=== PATIENT | female | born 1990 | race Caucasian/White ===

== ENCOUNTER 2019-11-16 09:54 | Inpatient (IN) | payer OTHER, SELFPAY ==
[2019-11-16] MEDS ORDERED: hydrALAZINE 20 MG/ML VIAL SLOW IVP PRN ×2 (10:07→13:59)
[2019-11-16] MEDS ORDERED: Promethazine HCl 25 MG/ML VIAL IM PRN ×2 (10:07→13:03)
[2019-11-16] MEDS ORDERED: Ondansetron PF 4 MG/2 ML Vial IVP PRN ×3 (10:07→13:59)
[2019-11-16] MEDS ORDERED: Butorphanol Tartrate 1 MG/ML VIAL SLOW IVP PRN (10:07)
[2019-11-16] MEDS ORDERED: Lactated Ringer's 1,000 ML IV SCH (10:15)
[2019-11-16 10:45] LABS: Hemoglobin 13.2 g/dL (12.0-16.0); Mean Corpuscular HGB CONC 34.8 g/dL (32.0-36.0); Mean Corpuscular Hemoglobin 32.5 pg (27.0-31.0); Mean Corpuscular Volume 93.1 fL (78.0-98.0); Mean Platelet Volume 8.4 fL (7.4-10.4); Platelet Count 226 thou/uL (130-400); RBC Distribution Width 10.9 % (11.5-14.5); Red Blood Cell (RBC) Count 4.08 mill/uL (4.20-5.40); White Blood Cell (WBC) Count 16.6 thou/uL (4.8-10.8)
[2019-11-16 11:15] VITALS: BMI 25.8
[2019-11-16 11:29] LABS: HBSAg Index 0.15 S/CO (0-0.99); Hep B Surf Ag Non-Reactive S/CO (NonReactive)
[2019-11-16 11:30] LABS: Syphilis Antibody Nonreactive (Nonreactive); Syphilis Antibody Index 0.04 S/CO (<1.00 Non-Reactive)
[2019-11-16] MEDS ORDERED: Bicitra 30 ML UDCUP PO SCH (11:30)
[2019-11-16] MEDS ORDERED: CEFAZOLIN 2 GM in Premix Bag 1 BAG IVPB SCH (11:30)
[2019-11-16] MEDS ORDERED: Ondansetron PF 4 MG/2 ML Vial ONE (11:57)
[2019-11-16] MEDS ORDERED: Famotidine/PF 20 mg/2ml Vial ONE (12:08)
[2019-11-16] MEDS ORDERED: MORPHINE 5 MG/10 ML PF VIAL ONE (12:15)
[2019-11-16] MEDS ORDERED: Oxytocin 10 UNITS/ML VIAL ONE ×2 (12:16→12:18)
[2019-11-16] MEDS ORDERED: EPHEDRINE 25 MG/5 ML SYRINGE ONE (12:16)
[2019-11-16] MEDS ORDERED: PHENYLEPHRINE-NS 100 MCG/ML 10 ML SYRINGE ONE (12:16)
[2019-11-16] MEDS ORDERED: Meperidine HCl/PF 25 MG/ML VIAL SLOW IVP PRN (13:03)
[2019-11-16] MEDS ORDERED: Ondansetron HCl/PF 4 MG/2 ML Vial IVP PRN (13:03)
[2019-11-16] MEDS ORDERED: Naloxone HCl 0.4 mg/ml Vial IV PRN (13:03)
[2019-11-16] MEDS ORDERED: Promethazine HCl 25 MG SUPP PR PRN (13:03)
[2019-11-16] MEDS ORDERED: L&D-Morphine 4 MG/ML VIAL SLOW IVP PRN (13:03)
[2019-11-16] MEDS ORDERED: diphenhydrAMINE 50 MG/ML VIAL IVP PRN (13:03)
[2019-11-16] MEDS ORDERED: HYDROmorphone 2 MG/ML VIAL SLOW IVP PRN (13:03)
[2019-11-16] MEDS ORDERED: Naloxone HCl 0.4 mg/ml Vial IVP PRN ×2 (13:03)
[2019-11-16] MEDS ORDERED: Communication Order-Pharmacy FS SCH (13:15)
[2019-11-16] MEDS ORDERED: Simethicone Chewable 80 MG TAB PO PRN (13:59)
[2019-11-16] MEDS ORDERED: Acetaminophen 325 MG TAB PO PRN (13:59)
[2019-11-16] MEDS ORDERED: Misoprostol 200 MCG TAB PR PRN (13:59)
[2019-11-16] MEDS ORDERED: Lanolin Ointment 7 GM TUBE TOP PRN (13:59)
[2019-11-16] MEDS ORDERED: Adacel (T-DAP) 0.5 ML SYRINGE IM ONE (13:59)
[2019-11-16] MEDS ORDERED: Bisacodyl 10 MG SUPP PR PRN (13:59)
[2019-11-16] MEDS ORDERED: Zolpidem Tartrate 5 MG TAB PO PRN (13:59)
[2019-11-16] MEDS ORDERED: NS / Oxytocin 40 units/1000ml 1,000 ML IV SCH (14:00)
[2019-11-16] MEDS: Lactated Ringer's 1,000 ML IV SCH ×2 (16:06→21:32)
[2019-11-16] MEDS: Ferrous Sulfate 325 MG TAB PO SCH (18:10)
[2019-11-16] MEDS: Ketorolac Tromethamine 30 MG/ML VIAL IVP PRN (21:25)
[2019-11-16] MEDS: Docusate Calcium (SURFAK) 240 MG CAP PO SCH (21:31)
[2019-11-16] MEDS: diphenhydrAMINE 25 MG CAP PO PRN (21:31)
[2019-11-17] MEDS ORDERED: Meperidine HCl/PF 25 MG/ML VIAL IM PRN (01:15)
[2019-11-17] MEDS ORDERED: HYDROcodone/Acetaminophen 5/325 mg Tablet PO PRN (01:15)
[2019-11-17] MEDS ORDERED: Butorphanol Tartrate 1 MG/ML VIAL SLOW IVP PRN (01:15)
[2019-11-17] MEDS: Ketorolac Tromethamine 30 MG/ML VIAL IVP PRN (04:41)
[2019-11-17] MEDS: diphenhydrAMINE 25 MG CAP PO PRN (04:46)
[2019-11-17 06:14] LABS: Mean Corpuscular HGB CONC 34.1 g/dL (32.0-36.0); Mean Corpuscular Hemoglobin 32.4 pg (27.0-31.0); Mean Corpuscular Volume 95.1 fL (78.0-98.0); Mean Platelet Volume 8.6 fL (7.4-10.4); Platelet Count 203 thou/uL (130-400); RBC Distribution Width 10.7 % (11.5-14.5); Red Blood Cell (RBC) Count 3.08 mill/uL (4.20-5.40); White Blood Cell (WBC) Count 26.2 thou/uL (4.8-10.8)
[2019-11-17] MEDS: Prenatal Vitamin 1 TAB PO SCH (09:05)
[2019-11-17] MEDS: Docusate Calcium (SURFAK) 240 MG CAP PO SCH ×2 (09:05→22:18)
[2019-11-17] MEDS: Ferrous Sulfate 325 MG TAB PO SCH ×2 (09:06→18:40)
[2019-11-17] MEDS: HYDROcodone/Acetaminophen 5/325 mg Tablet PO PRN (09:07)
[2019-11-17] MEDS: Lactated Ringer's 1,000 ML IV SCH ×2 (14:25→22:00)
[2019-11-17] MEDS: Ibuprofen 800 MG TAB PO SCH ×3 (14:27→22:18)
--- NOTE | 2019-11-17 20:06 | OP ---
DATE OF PROCEDURE: 11/16/2019 ATTENDING STAFF PHYSICIAN: Rashad Gill MD RESIDENT SURGEON: Lamont Tsai MD PREOPERATIVE DIAGNOSES: 1. Term intrauterine at 37 and 6/7th's weeks. 2. Footling breech presentation. 3. Active labor. POSTOPERATIVE DIAGNOSES: 1. Term intrauterine at 37 and 6/7th's weeks. 2. Footling breech presentation. 3. Active labor. PROCEDURE PERFORMED: Emergent primary low transverse section. ANESTHESIA: Spinal catheterization. FINDINGS: 1. Active labor with footling breech presentation. 2. Cervix dilated to 6 cm, complete effacement, and -1 station. 3. Vigorous male , 7 pounds 5 ounces. Apgars were 8 and 9. 4. Normal uterus, tubes, and ovaries. COMPLICATIONS: None. SPECIMENS REMOVED: Cord blood. BLOOD LOSS: Approximately mL (QBL was 398 mL). HISTORY AND INDICATIONS: Mrs. Natasha Hogan is a very pleasant 29-year-old white female, 2, para 1-0-0-1, who is following my clinic for obstetric care. Natasha's has been complicated by first trimester vaginal bleeding with subchorionic bleed and breech presentation in the third trimester. Natasha called the office this morning, 11/16/2019, and noted that she was feeling more pelvic pressure and had a very small amount of bloody show. She presented to the office as scheduled and cervical examination revealed her to be 5+ cm dilated, completely effaced, and -1 station. There was bloody show noted. The patient was feeling significant amount of pressure and having regular contractions. She was sent to [facility] and admitted through the emergency room for emergent delivery. The patient and her were thoroughly counseled and consented, and disclosures were signed and placed in the chart. Questions were answered to the patient's and family's satisfaction. DESCRIPTION OF PROCEDURE: After thorough consent and counseling, Mrs. Hogan was taken to the operating room and adequate level of anesthesia was obtained via spinal catheterization. The patient was quickly prepped and draped in the usual sterile fashion for abdominal surgery. A Pennington was placed in the bladder, which was noted to be draining clear urine. Attention was then turned to performing the emergent primary low-transverse section. Team time-out was performed per protocol. A Pfannenstiel incision was made and carried sharply to the fascia, which was also sharply incised. The midline was identified, and the rectus muscles were retracted laterally. The abdominal peritoneal cavity was entered with usual safeguards carried out. A retractor was placed, and a bladder flap was created on the vesicouterine peritoneum. A bladder blade was then placed. A low-transverse incision was made on the well-developed lower uterine segment. Upon entering the amniotic sac, copious amount of clear amniotic fluid was visualized. The infant was noted to be in footling breech presentation. The breech was carefully delivered in an atraumatic fashion. Using the Mauriceau maneuver, shoulders and after coming head were also delivered in an atraumatic fashion. Baby was bulb suctioned on the abdomen. The cord was doubly clamped and cut, and the infant was handed to the Neonatology team in attendance for the delivery. The was a vigorous viable male weighing 7 pounds 5 ounces with Apgars of 8 and 9 obtained at 1 and 5 minutes respectively. Cord blood was obtained. The placenta was manually removed from the uterus. The uterus was exteriorized, and good tone was noted. The uterine cavity was cleared of any remaining clot and fluid. The low-transverse incision was closed with a running locking ligature of #1 chromic. A second imbricating layer was placed to facilitate strength and hemostasis. The vesicouterine peritoneum was reapproximated to the lower segment with a running ligature of 2-0 Monocryl suture. The posterior cul-de-sac and gutters were cleared of clot and fluid. The incision was carefully inspected once again and noted to be hemostatic. Seprafilm was applied to the low-transverse incision and to the anterior aspect of the uterus for adhesion prevention. The uterus, fallopian tubes, and ovaries were carefully inspected and noted to be normal and no pathology was identified. The uterus was returned to the abdomen. Good tone and hemostasis were once again noted. Lap, sponge, and needle counts were correct. The peritoneum was closed with a running ligature of 2-0 Vicryl suture. The rectus muscles were reapproximated in the midline with interrupted ligatures of 2-0 Vicryl and 0 chromic suture. The fascia was then closed with two ligatures of 0 Vicryl suture, which were tied in the midline. Good fascial integrity was noted. The incision was irrigated with copious amount of warm normal saline. Hemostasis was obtained with Bovie cauterization. The subcutaneous tissue was then closed with interrupted ligatures of 2-0 plain suture. The skin was closed with a subcuticular stitch of 4-0 Monocryl and dressed with Dermabond. Lap, sponge, and needle counts were correct x3. Estimated blood loss during the surgical procedure was approximately mL (QBL equal 398 mL). The patient was taken to recovery room in good condition. The baby was taken to the nursery short-term in good condition. Immediately following surgery, the patient and family were made aware of the surgical procedure and operative findings. We discussed in details the indications for emergent delivery secondary to breech presentation in active labor and advanced dilation. Questions were answered to the patient's and family's satisfaction. Natasha and her were very appreciative of the care rendered here at [facility] this afternoon. Mother and baby were doing well postoperatively. Job ID: [id number]
[2019-11-18] MEDS: HYDROcodone/Acetaminophen 5/325 mg Tablet PO PRN (05:20)
[2019-11-18] MEDS: Ibuprofen 800 MG TAB PO SCH ×3 (05:20→14:23)
[2019-11-18] MEDS: Lactated Ringer's 1,000 ML IV SCH (06:07)
[2019-11-18] MEDS: Docusate Calcium (SURFAK) 240 MG CAP PO SCH (09:07)
[2019-11-18] MEDS: Prenatal Vitamin 1 TAB PO SCH (09:07)
[2019-11-18] MEDS: Ferrous Sulfate 325 MG TAB PO SCH (09:08)
[2019-11-18 12:32] VITALS: BP 110/58; TEMP 97.7
== END 2019-11-18 14:45 | disposition home or self-care (01) | DRG 788 ==
LOC: L&D 09:54 → 3SW 16:18
PROVIDERS: ADMIT Obstetrics & Gynecology; ATTEND Obstetrics & Gynecology
PROC: 10D00Z1 Extraction of Products of Conception, Low, Open Approach (ICD-10-PCS; principal; 2019-11-16)
PROC: 3E0P05Z Introduction of Adhesion Barrier into Female Reproductive, Open Approach (ICD-10-PCS; 2019-11-16)
DX: O32.8XX0 Maternal care for other malpresentation of fetus, not applicable or unspecified (principal); Z3A.37 37 weeks gestation of pregnancy; Z37.0 Single live birth
CPT/HCPCS: 36415; 85027; 86780; 86850; 86900; 86901; 87340; J0690; J1885; J2274; J2405; J2590; Q0163; S0028